=== PATIENT | female | born 1975 | race African-American/Black ===

== ENCOUNTER 2021-10-27 11:52 | Day surgery (SDC) | payer MEDICAID ==
[2021-10-27] VITALS (8 sets, daily range): BP systolic 115–132; BP diastolic 69–96; PULSE 76–98; TEMP 97.4–98.6
[~2021-10-27] VITALS: Ht 162.6 cm; Wt 89.9 kg
[2021-10-27] MEDS ORDERED: PREMARIN .3MG0.3 MG PO (12:47)
[2021-10-27] MEDS ORDERED: PREMARIN VAG42.5 GM VG (12:48)
[2021-10-27] MEDS ORDERED: PRIL40 PO (12:48)
[2021-10-27] MEDS ORDERED: NORCO 325 MG-51 TAB PO (16:07)
[2021-10-27] MEDS ORDERED: MOTRIN 600600 MG/TAB PO (16:07)
--- NOTE | 2021-10-27 16:45 | NUR ---
PT TO BAY 2 PER CART FROM PACU. RECEIVED REPORT. VS OBTAINED. PT C/O NAUSEA. COLD WASH CLOTH GIVEN TO PT.
--- NOTE | 2021-10-27 17:15 | NUR ---
PT VOMITED IN TRASH CAN. COLD WASH CLOTH GIVEN. WILL CONTINUE TO MONITOR PT. DENIES ANY ADDTIONAL NEEDS AT THIS TIME.
--- NOTE | 2021-10-27 17:45 | NUR ---
PT TOLERATING ICE CHIPS AND CRANBERRY JUICE.
--- NOTE | 2021-10-27 18:15 | NUR ---
PT ABLE TO TOLERATE APPLESAUCE.
--- NOTE | 2021-10-27 18:40 | NUR ---
PT TOLERATING SALTINE CRACKERS. STATES THEY ARE HELPING.
--- NOTE | 2021-10-27 18:55 | NUR ---
IV DC'D. PT TOLERATED WELL.
--- NOTE | 2021-10-27 19:09 | NUR ---
DISCHARGE EDUCATION COMPLETED WITH PT. VERBALIZED UNDERSTANDING OF HOME AND FOLLOW UP CARE. ALL QUESTIONS ANSWERED. DISCHARGE PAPERWORK GIVEN TO PT.
--- NOTE | 2021-10-27 19:15 | NUR ---
PT OFF UNIT PER WHEELCHAIR. PT DISCHARGE TO HOME WITH FRIEND PER PERSONAL VEHICLE.
== END 2021-10-27 19:15 | disposition home or self-care (01) ==
LOC: SDCO 11:52
DX: K80.10 Calculus of gallbladder with chronic cholecystitis without obstruction (principal)
CPT/HCPCS: J0690; J1100; J1885; J2405; J2704; J3010; J7120; Q9967

== ENCOUNTER 2023-01-07 08:15 | Outpatient (RCR) | payer MEDICAID ==
[~2023-01-07 08:15] MED LIST: MOTRIN 600600 MG/TAB PO; NORCO 325 MG-51 TAB PO; PREMARIN .3MG0.3 MG PO; PREMARIN VAG42.5 GM VG; PRIL40 PO
== END 2023-01-08 | disposition home or self-care (01) ==
LOC: WSPT
DX: M54.42 Lumbago with sciatica, left side (principal)